=== PATIENT | male | born 1960 | race Two or more races ===

== ENCOUNTER 2019-07-30 11:57 | Emergency (ER) | payer BC ==
[~2019-07-30] VITALS: Ht 175.3 cm; Wt 80.3 kg
[2019-07-30 13:22] LABS: Basophils # (auto) 0.1 uL; Basophils % (auto) 0.5 % (0.0-2.0); Eosinophils # (auto) 0.2 uL; Eosinophils % (auto) 1.3 % (0.0-7.0); Hemoglobin 15.3 g/dL (13.5-17.5); Lymphocytes # (auto) 1.9 uL; Lymphocytes % (auto) 15.4 % (10.0-50.0); Mean Corpuscular Hemoglobin 32.8 pg (28.0-32.0); Mean Corpuscular Hgb Conc. 34.7 g/dL (32.0-36.0); Mean Corpuscular Volume 94.5 fL (80.0-100.0); Monocytes # (auto) 0.6 uL; Monocytes % (auto) 4.8 % (0.0-12.0); Neutrophils # (auto) 9.7 uL; Platelet Count (auto) 265 10^3/uL (140-450); Red Blood Cells 4.66 10^6/uL (4.5-5.90); Red Cell Distribution Width 12.7 % (11.8-14.3); White Blood Cell 12.5 10^3/uL (4.4-10.8)
[2019-07-30 13:46] LABS: Albumin 3.3 g/dL (3.4-5.0); Anion Gap 8 (5-15); Blood Urea Nitrogen 13 mg/dL (7-18); Calcium 8.6 mg/dL (8.5-10.1); Carbon Dioxide 27 mmol/L (21-32); Chloride 105 mmol/L (98-107); Glucose 135 mg/dL (74-106); Potassium 3.7 mmol/L (3.5-5.1); Sodium 140 mmol/L (136-145)
[2019-07-30 13:48] LABS: Alanine Aminotransferase 52 U/L (16-61); Aspartate Aminotransferase 36 U/L (15-37); BUN/Creatinine Ratio 17.6; GFR African American 138 mL/min; GFR Non-African American 114 mL/min
[2019-07-30 13:54] LABS: Alkaline Phosphatase 94 U/L (45-117); Bilirubin, Total 0.3 mg/dL (0.2-1.0); Total Protein 7.3 g/dL (6.4-8.2)
[2019-07-30 16:00] VITALS: BP 155/88
== END 2019-07-30 16:13 | disposition home or self-care (01) ==
LOC: ER 11:57
DX: R07.89 Other chest pain (principal); M54.5 Low back pain; J40 Bronchitis, not specified as acute or chronic; E44.1 Mild protein-calorie malnutrition; Z68.26 Body mass index [BMI] 26.0-26.9, adult
CPT/HCPCS: 36415; 71046; 74176; 80053; 84484; 85025; 93005

== ENCOUNTER 2019-08-30 06:30 | Emergency (ER) | payer BC ==
[~2019-08-30] VITALS: Ht 175.3 cm; Wt 78.9 kg
[2019-08-30 07:33] VITALS: BP 163/91
[2019-08-30 07:54] LABS: Urine Bacteria NONE SEEN /hpf (None Seen); Urine Blood Negative /uL (Negative); Urine Specific Gravity 1.023 (1.001-1.035); Urine WBC <1 /hpf (0 - 3)
== END 2019-08-30 10:10 | disposition home or self-care (01) ==
LOC: ER 06:30
DX: M62.830 Muscle spasm of back (principal); F17.210 Nicotine dependence, cigarettes, uncomplicated
CPT/HCPCS: 72070; 81001